=== PATIENT | female | born 1980 | race Caucasian/White ===

== ENCOUNTER 2017-01-16 20:00 | Emergency (ER) | payer OTHER, SELFPAY ==
--- NOTE | 2017-01-16 21:10 | RAD ---
FOUR VIEWS RIGHT KNEE 01/16/17 HISTORY: Right knee injury. FINDINGS/IMPRESSION: There is no evidence of a fracture, dislocation, or other osseous abnormality involving the right kn ee. POS: [facility]
== END 2017-01-16 21:20 | disposition home or self-care (01) ==
LOC: MADERS 20:00
DX: S83.411A Sprain of medial collateral ligament of right knee, initial encounter (principal); F41.9 Anxiety disorder, unspecified; Z79.891 Long term (current) use of opiate analgesic; Z79.899 Other long term (current) drug therapy; X50.1XXA Overexertion from prolonged static or awkward postures, initial encounter

== ENCOUNTER 2017-05-08 07:52 | Emergency (ER) | payer SELFPAY ==
[2017-05-08] MEDS ORDERED: Dexamethasone 10 MG/ML VIAL ONE (08:10)
[2017-05-08] MEDS ORDERED: Dexamethasone 4 MG TAB ONE (08:13)
== END 2017-05-08 08:15 | disposition home or self-care (01) ==
LOC: MADERS 07:52
DX: J02.0 Streptococcal pharyngitis (principal); F41.9 Anxiety disorder, unspecified
CPT/HCPCS: 99283; J1100; J8540